=== PATIENT | female | born 1995 | race Caucasian/White ===

== ENCOUNTER 2016-08-05 09:52 | Emergency (ER) | payer OTHER ==
[~2016-08-05] VITALS: Ht 160 cm; Wt 65.6 kg
[~2016-08-05 09:52] MED LIST: CEPH-368 PO; IBUP-1222 PO; OXYC-302 PO; PREN1TAB60 PO
[2016-08-05] MEDS ORDERED: ASPIRIN 81 MG TABLET CHEW PO ONE (11:30)
[2016-08-05] MEDS ORDERED: ASPIRIN 81 MG TABLET CHEW ONE (11:31)
[2016-08-05 11:46] LABS: BLOOD UREA NITROGEN 9 mg/dL (7-18)
[2016-08-05 13:03] VITALS: BP 106/67
== END 2016-08-05 13:12 | disposition home or self-care (01) ==
LOC: ED 12:48
DX: R07.89 Other chest pain (principal)
CPT/HCPCS: 36415; 71010; 80048; 82040; 84484; 85025; 85379; 93005; 99285

== ENCOUNTER 2017-09-08 20:54 | Outpatient (CLI) | payer OTHER ==
[~2017-09-08] VITALS: Ht 160 cm; Wt 81.0 kg
[2017-09-08 21:26] LABS: MICROSCOPIC AUTO
== END 2017-09-08 21:39 | disposition home or self-care (01) ==
LOC: LDOP 20:54
PROVIDERS: ATTEND Obstetrics & Gynecology Female Pelvic Medicine and Reconstructive Surgery
DX: O46.93 Antepartum hemorrhage, unspecified, third trimester (principal); Z3A.33 33 weeks gestation of pregnancy
CPT/HCPCS: 59025; 81001; 99211; G0463

== ENCOUNTER 2017-09-18 15:45 | Outpatient (CLI) | payer OTHER ==
[2017-09-18 16:25] LABS: MICROSCOPIC INDICATED
== END 2017-09-18 16:50 | disposition home or self-care (01) ==
LOC: LDOP 15:45
PROVIDERS: ATTEND Obstetrics & Gynecology Female Pelvic Medicine and Reconstructive Surgery
DX: O26.893 Other specified pregnancy related conditions, third trimester (principal); R20.0 Anesthesia of skin; Z3A.34 34 weeks gestation of pregnancy
CPT/HCPCS: 59025; 81001; 99211; G0463

== ENCOUNTER 2017-10-14 13:52 | Outpatient (CLI) | payer OTHER ==
[~2017-10-14] VITALS: Ht 160 cm; Wt 86.4 kg
[2017-10-14 14:06] VITALS: BP 133/73
== END 2017-10-14 15:50 | disposition home or self-care (01) ==
LOC: LDOP 13:52
PROVIDERS: ATTEND Obstetrics & Gynecology Female Pelvic Medicine and Reconstructive Surgery
DX: O26.893 Other specified pregnancy related conditions, third trimester (principal); R10.9 Unspecified abdominal pain; Z3A.38 38 weeks gestation of pregnancy
CPT/HCPCS: 59025; 99211; G0463

== ENCOUNTER 2017-10-22 05:02 | Inpatient (IN) | payer OTHER ==
[~2017-10-22] VITALS: Ht 160 cm; Wt 87.7 kg
[2017-10-22] MEDS ORDERED: OXYTOCIN 30U/ 0.9% NaCL 500ML 500 ML IV ONE (05:03)
[2017-10-22] MEDS ORDERED: OXYTOCIN 30U/ 0.9% NaCL 500ML 500 ML IV PRN (05:03)
[2017-10-22] MEDS: D5%-LACTATED RINGERS 1,000 ML IV SCH ×2 (05:03→13:03)
[2017-10-22 05:04] VITALS: BP 126/83
[2017-10-22] MEDS ORDERED: OXYTOCIN 30U/ 0.9% NaCL 500ML 500 ML ONE ×2 (05:12→10:18)
[2017-10-22] MEDS ORDERED: NEWBORN KIT ONE (05:12)
[2017-10-22] MEDS ORDERED: LIDOCAINE/PF 1%, 30ML ONE (05:12)
[2017-10-22] MEDS ORDERED: MISOPROSTOL 200 MCG TABLET ONE (05:12)
[2017-10-22] MEDS: LACTATED RINGERS 1,000 ML IV SCH ×4 (05:24→16:28)
[2017-10-22 05:29] LABS: BASOPHILS # (AUTO) 0.09 x10^3/uL (0-0.1); BASOPHILS % (AUTO) 1 % (0-1); EOSINOPHILS # (AUTO) 0.18 x10^3/uL (0-0.4); EOSINOPHILS % (AUTO) 2 % (1-7); LYMPHOCYTES # (AUTO) 2.61 x10^3/uL (1-3.4); LYMPHOCYTES % (AUTO) 22 % (22-44); MD NO; MEAN CORPUSCULAR HEMOGLOBIN 31.1 pg (27.0-34.8); MEAN CORPUSCULAR HGB CONC 34.6 g/dL (32.4-35.8); MEAN CORPUSCULAR VOLUME 89.9 fL (80-100); MEAN PLATELET VOLUME 8.9 fL (7.4-10.4); MONOCYTES # (AUTO) 0.65 x10^3/uL (0.2-0.8); MONOCYTES % (AUTO) 6 % (2-9); NEUTROPHILS # (AUTO) 8.34 x10^3/uL (1.8-6.8); NEUTROPHILS % (AUTO) 70 % (42-75); PLATELET COUNT 189 x10^3/uL (130-400); RED BLOOD COUNT 4.21 x10^6/uL (3.82-5.3); RED CELL DISTRIBUTION WIDTH 13.3 % (9.6-15.2)
[2017-10-22] MEDS ORDERED: TERBUTALINE 1 MG/ML, 1ML SQ PRN (05:30)
[2017-10-22] MEDS ORDERED: ALUMINUM/MAG/SIMETHICONE 30 ML UDC PO PRN (05:30)
[2017-10-22] MEDS ORDERED: ONDANSETRON 2MG/ML, 2ML IVPush PRN (05:30)
[2017-10-22] MEDS ORDERED: METOCLOPRAMIDE 5 MG/ML, 2ML IVPush PRN (05:30)
[2017-10-22] MEDS ORDERED: TERBUTALINE 1 MG/ML, 1ML IVPush PRN ×2 (05:30)
[2017-10-22] MEDS ORDERED: CALCIUM CARBONATE 500 MG TAB.CHEW PO PRN (05:30)
[2017-10-22] MEDS ORDERED: SODIUM CITRATE/CITRIC ACID 30 ML UDC PO PRN (05:30)
[2017-10-22] MEDS ORDERED: FENTANYL PF 100 MCG/2ML IV PRN (05:30)
[2017-10-22] MEDS ORDERED: FENTANYL PF 100 MCG/2ML IVPush PRN (05:30)
[2017-10-22] MEDS ORDERED: PREN1TAB60 PO (06:05)
[2017-10-22] MEDS ORDERED: ONDANSETRON 2MG/ML, 2ML ONE (08:02)
[2017-10-22] MEDS ORDERED: BUPIVACAINE 0.25% ONE ×2 (08:07→08:15)
[2017-10-22] MEDS ORDERED: LIDOCAINE/PF 1.5%-EPI 1:200K, 30ML ONE (08:15)
[2017-10-22] MEDS ORDERED: EPHEDRINE 50 MG/ML, 1ML IVPush PRN (08:30)
[2017-10-22] MEDS ORDERED: FENTANYL/BUPIV./NS/PF 250 ML EPIDCONT SCH (08:30)
[2017-10-22] MEDS ORDERED: LACTATED RINGERS 1,000 ML IVBOLUS PRN (08:30)
[2017-10-22] MEDS: OXYTOCIN 30U/ 0.9% NaCL 500ML 500 ML IV SCH ×2 (10:13→20:13)
[2017-10-22] MEDS ORDERED: IBUPROFEN 600 MG TABLET ONE (10:18)
[2017-10-22] MEDS: IBUPROFEN 600 MG TABLET PO PRN ×3 (10:20→23:02)
[2017-10-22] MEDS ORDERED: HYDROcodone/APAP 5/325 TABLET PO PRN (10:30)
[2017-10-22] MEDS ORDERED: BISACODYL 10 MG SUPP PR PRN (10:30)
[2017-10-22] MEDS ORDERED: ACETAMINOPHEN 325 MG TABLET PO PRN (10:30)
[2017-10-22] MEDS ORDERED: ONDANSETRON 2MG/ML, 2ML IV PRN (10:30)
[2017-10-22] MEDS ORDERED: MISOPROSTOL 200 MCG TABLET PR PRN (10:30)
[2017-10-22] MEDS ORDERED: METOCLOPRAMIDE 5 MG/ML, 2ML IV PRN (10:30)
[2017-10-22 13:10] VITALS: BP 126/77
[2017-10-22 15:10] VITALS: BP 126/77
[2017-10-22 17:34] VITALS: BP 138/50
[2017-10-22 18:32] LABS: BASOPHILS # (AUTO) 0.05 x10^3/uL (0-0.1); BASOPHILS % (AUTO) 0 % (0-1); EOSINOPHILS # (AUTO) 0.05 x10^3/uL (0-0.4); EOSINOPHILS % (AUTO) 0 % (1-7); LYMPHOCYTES % (AUTO) 12 % (22-44); MD NO; MEAN CORPUSCULAR HEMOGLOBIN 31.7 pg (27.0-34.8); MEAN CORPUSCULAR HGB CONC 34.7 g/dL (32.4-35.8); MEAN CORPUSCULAR VOLUME 91.3 fL (80-100); MEAN PLATELET VOLUME 8.9 fL (7.4-10.4); MONOCYTES # (AUTO) 0.79 x10^3/uL (0.2-0.8); MONOCYTES % (AUTO) 6 % (2-9); NEUTROPHILS # (AUTO) 11.83 x10^3/uL (1.8-6.8); NEUTROPHILS % (AUTO) 81 % (42-75); PLATELET COUNT 186 x10^3/uL (130-400); RED CELL DISTRIBUTION WIDTH 13.7 % (9.6-15.2)
[2017-10-22 19:50] VITALS: BP 132/85
[2017-10-22] MEDS ORDERED: RHOGAM FROM BLOOD BANK 1 NOTE EA IM/IV ONE (21:00)
[2017-10-22] MEDS: DOCUSATE 100 MG CAPSULE PO PRN (23:03)
[2017-10-22 23:22] VITALS: BP 129/80
[2017-10-23] MEDS: HYDROcodone/APAP 5/325 TABLET PO PRN ×2 (00:27→09:17)
[2017-10-23] MEDS: LACTATED RINGERS 1,000 ML IV SCH (00:30)
[2017-10-23 04:00] VITALS: BP 126/75
[2017-10-23] MEDS: IBUPROFEN 600 MG TABLET PO PRN (06:31)
[2017-10-23 07:45] VITALS: BP 123/82
[2017-10-23] MEDS ORDERED: PRENATAL VIT/IRON/FA 1 EACH TABLET PO SCH (09:00)
[2017-10-23] MEDS ORDERED: IBUP-1222 PO (09:11)
[2017-10-23] MEDS ORDERED: HYDR-3240 PO (09:12)
[2017-10-23] MEDS: DOCUSATE 100 MG CAPSULE PO PRN (09:18)
== END 2017-10-23 12:30 | disposition home or self-care (01) | DRG 775 ==
LOC: LDIP 05:02 → 2NW 13:00
PROVIDERS: ADMIT Obstetrics & Gynecology Female Pelvic Medicine and Reconstructive Surgery; ATTEND Obstetrics & Gynecology Female Pelvic Medicine and Reconstructive Surgery
PROC: 10E0XZZ Delivery of Products of Conception, External Approach (ICD-10-PCS; principal; 2017-10-22)
PROC: 10907ZC Drainage of Amniotic Fluid, Therapeutic from Products of Conception, Via Natural or Artificial Opening (ICD-10-PCS; 2017-10-22)
PROC: 3E0R3BZ Introduction of Anesthetic Agent into Spinal Canal, Percutaneous Approach (ICD-10-PCS; 2017-10-22)
PROC: 00HU33Z Insertion of Infusion Device into Spinal Canal, Percutaneous Approach (ICD-10-PCS; 2017-10-22)
PROC: 30233S1 Transfusion of Nonautologous Globulin into Peripheral Vein, Percutaneous Approach (ICD-10-PCS; 2017-10-22)
DX: O80 Encounter for full-term uncomplicated delivery (principal); Z37.0 Single live birth; Z3A.39 39 weeks gestation of pregnancy
CPT/HCPCS: 36415; J2790; 85025; 85461; 86850; 86900; J2405; J3490; J2590; J7120